=== PATIENT | female | born 2005 | race Hispanic/Latino ===

== ENCOUNTER → 2025-03-19 13:24 | Outpatient (REF) | payer BC, SELFPAY | LOC: HWRAD 13:24 | PROVIDERS: ATTENDING PHYSICIAN Obstetrics & Gynecology Gynecology; FAMILY PHYSICIAN Internal Medicine | DX: Z30.431 Encounter for routine checking of intrauterine contraceptive device (principal) | CPT/HCPCS: 76830; 76856 ==